=== PATIENT | male | born 1955 | race Caucasian/White ===

== ENCOUNTER 2025-09-24 06:14 | Day surgery (SDC) | payer MEDICARE, SELFPAY | END 2025-09-24 13:44 | disposition home or self-care (01) | LOC: GI 06:14 | PROVIDERS: ATTENDING PHYSICIAN Specialist; FAMILY PHYSICIAN Family Medicine | DX: Z12.11 Encounter for screening for malignant neoplasm of colon (principal); K64.8 Other hemorrhoids; D12.0 Benign neoplasm of cecum; D12.3 Benign neoplasm of transverse colon | CPT/HCPCS: 45385; 45380; 88305 ==